=== PATIENT | female | born 1970 | race Two or more races ===

== ENCOUNTER 2024-07-10 07:09 | Emergency (ER) | payer MEDICAID, SELFPAY ==
[2024-07-10 07:25] VITALS: BP 123/82; PULSE 88; RESP 18; TEMP 36.8; O2SAT 96; BMI 22.8
--- NOTE | 2024-07-10 07:34 | PD.EDFMALE ---
ED Female Urogenital RME/HPI General Chief complaint: Abdominal Pain Stated complaint: PAINFUL URINATION Time Seen by Provider: 07/10/24 07:13 Source: patient Arrival date/time: 07/10/24 07:09 53-year-old female presents to the emergency room with a chief complaint of painful urination and lower abdominal pain x 3 days Mode of arrival: ambulatory Limitations: no limitations Related Data Previous Rx's ?Medication ?Instructions ?Recorded metoclopramide HCl 5 mg tablet 5 mg PO QDAY #9 tabs 02/29/20 (Reglan) doxycycline monohydrate 100 mg 100 mg PO BID 14 days #28 caps 07/10/24 capsule metoclopramide HCl 10 mg tablet 10 mg PO BID PRN nausea and 07/10/24 (Reglan) vomiting #10 tabs nitrofurantoin 100 mg PO Q12H 5 days #10 caps 07/10/24 monohydrate/macrocrystals 100 mg capsule (Macrobid) Allergies Allergy/AdvReac Type Severity Reaction Status Date / Time haloperidol Allergy Severe JAW LOCKS Verified 07/10/24 07:14 AND THROAT SWELLS Penicillins Allergy Severe THROAT Verified 07/10/24 07:14 SWELLING risperidone Allergy Severe THROAT Verified 07/10/24 07:14 SWELLING ketorolac Allergy Intermediate RASH Verified 07/10/24 07:14 Review of Systems Review of Systems Systems Reviewed: All systems reviewed, normal except as documented Constitutional Constitutional: Reports system reviewed and no additional complaints, except as documented, Denies fatigue, Denies fever(s), Denies headache(s) and Denies weakness Eyes Eyes: Reports system reviewed and no additional complaints, except as documented, Denies blurry vision and Denies change in vision ENT Ears, Nose, Mouth, and Throat: Reports system reviewed and no additional complaints, except as documented, Denies otalgia, Denies headache(s), Denies nasal congestion, Denies throat swelling and Denies vertigo Cardiovascular Cardiovascular: Reports system reviewed and no additional complaints, except as documented, Denies chest pain, Denies dyspnea and Denies dyspnea on exertion Respiratory Respiratory: Reports system reviewed and no additional complaints, except as documented, Denies chest congestion, Denies cough, Denies dyspnea, Denies dyspnea on exertion and Denies wheezing Gastrointestinal Gastrointestinal: Reports system reviewed and no additional complaints, except as documented, Denies abdominal pain, Denies cramping, Denies nausea and Denies vomiting Genitourinary Genitourinary: Reports system reviewed and no additional complaints, except as documented, Denies abnormal vaginal bleeding, Reports dysuria, Reports vaginal odor and Reports vaginal pruritus Musculoskeletal Musculoskeletal: Reports system reviewed and no additional complaints, except as documented and Denies back pain Integumentary/Breasts Skin/Breast: Reports system reviewed and no additional complaints, except as documented and Denies wounds Neurologic Neurologic: Reports system reviewed and no additional complaints, except as documented, Denies confusion, Denies headache(s), Denies lack of coordination, Denies vertigo and Denies weakness Psychiatric Psychiatric: Reports system reviewed and no additional complaints, except as documented, Denies anxiety, Denies confusion, Denies depression, Denies paranoia, Denies suicidal ideation and Denies tactile hallucinations Endocrine Endocrine: Reports system reviewed and no additional complaints, except as documented and Denies fatigue Hematologic/Lymphatic Hematologic/Lymphatic: Reports system reviewed and no additional complaints, except as documented and Denies lymphadenopathy Allergic/Immunologic Allergic/Immunologic: Reports system reviewed and no additional complaints, except as documented, Denies throat swelling, Denies urticaria and Denies wheezing ED Exam General Limitations: Present no limitations General appearance: Present alert and in no apparent distress Head Head exam: Present atraumatic Eye Eye exam: Present normal appearance, PERRL and EOMI ENT ENT exam: Present normal exam, normal oropharynx and mucous membranes moist Neck Neck exam: Present normal inspection, full ROM and trachea midline Chest Chest inspection: Present normal inspection and symmetric chest wall rise Respiratory Respiratory exam: Present normal lung sounds bilaterally Cardiovascular Cardiovascular exam: Present regular rate, normal rhythm and normal heart sounds Abdominal Exam Abdominal exam: Present soft and normal bowel sounds; Absent tenderness or tenderness at McBurney's Point Abdominal tenderness: Present suprapubic and mild; Absent RLQ or LLQ Extremities Exam Extremities exam: Present normal inspection and full ROM Back Exam Back exam: Present normal inspection and full ROM Neurological Exam Neurological exam: Present alert, oriented X3 and CN II-XII intact Psychiatric Psychiatric exam: Present normal affect and normal mood Skin Skin exam: Present warm, dry, intact and normal color Course Quality Measures none Orders Category Date Time Status CBC Stat Lab 07/10/24 07:50 Completed CMP [Comprehensive Metabolic Panel] Stat Lab 07/10/24 07:50 Completed Chlamydia/GC/TV - PCR Stat Lab 07/10/24 07:45 Received MHATP/TP-PA* Stat Lab 07/10/24 07:50 Received Syphilis Stat Lab 07/10/24 07:50 Completed UA, C/S IF [Urinalysis, C/S if Indicated] Stat Lab 07/10/24 07:45 Completed Metoclopramide [Reglan] Med 07/10/24 10:29 Discontinued 10 mg PO X1 ONE Ondansetron Odt [Zofran Odt] Med 07/10/24 08:33 Discontinued 4 mg PO X1 ONE cefTRIAXone [Rocephin] 1,000 mg Med 07/10/24 10:03 Discontinued Lidocaine 1% 20 ml [Xylocaine 1% 20 ML] 2.1 ml IM X1 Vital Signs Vital signs: Vital Signs Temperature 98.2 F 07/10/24 07:25 Pulse Rate 88 07/10/24 07:25 Respiratory Rate 18 07/10/24 07:25 Blood Pressure 123/82 07/10/24 07:25 Pulse Oximetry (%) 96 07/10/24 07:25 Oxygen Delivery Method Room Air 07/10/24 07:25 O2 saturation 96% within normal limits Urogenital - Female MDM Narrative MDM Narrative:: 53-year-old female presents to the emergency room with a chief complaint of painful urination and lower abdominal pain x 3 days Patient is hemodynamically stable and in no apparent distress. Physical examination shows mild abdominal cramping. Patient states she is having dysuria with no hematuria. Patient denies any flank pain. Urinalysis shows urinary tract infection. Patient also tested positive for syphilis. I spoke to the patient patient states she had syphilis when she was a teen and was treated. Patient does not know if this infection his recent but she states she will follow-up with her primary care provider and she will take the medication. Patient was discharged and educated to follow-up with primary care provider in the next 24 to 48 hours and return to the emergency room for any evidence of worsening signs or symptoms Patient data External records reviewed:: [facility] previous records Clinical information provided by:: patient Social determinants that could affect healthcare access:: none Patient has the following chronic illnesses:: No chronic illness How is presenting disease/condition affected by chronic disease/condition?: no chronic disease Evaluation data The following diagnostics were reviewed and interpreted by me:: lab results and radiology exam(s) Lab and/or radiology exams considered but not ordered:: Labs and radiology exams considered and ordered Interpretation Summary: N/A Medications / Prescriptions Medications or Prescriptions considered but not ordered:: Medication given Medication administrations:: Medication Administration History Discontinued Medications Ceftriaxone Sodium 1,000 mg/ (Lidocaine HCl 2.1 ml) 0 mg IM X1 ONE Stop: 07/10/24 10:04 Last Admin: 07/10/24 10:22 Dose: 1,000 mg Documented By: KYLE Metoclopramide HCl (Metoclopramide 5 Mg Tablet) 10 mg PO X1 ONE Stop: 07/10/24 10:30 Last Admin: 07/10/24 10:39 Dose: 10 mg Documented By: KYLE Ondansetron HCl (Ondansetron Odt 4 Mg Tabrap) 4 mg PO X1 ONE; Protocol Stop: 07/10/24 08:34 Last Admin: 07/10/24 08:48 Dose: 4 mg Documented By: JASIEL Medication given Consultations Consultation(s) initiated? (list below): No Diagnosis Urogenital Female Differential Diagnosis: urinary tract infection, bacterial vaginosis, vaginitis, cystitis and other (Syphilis) Most likely diagnosis given after review of the tests above:: Urinary tract infection/syphilis Admission Indicated Admission indicated?: not indicated Admission Request Was there a request for admission?: No Disposition Plan Disposition Plan: Discharge Discharge Attestation Discharge Attestation: The patient and all family members were given an opportunity to ask questions and understood the discharge instructions. Discharge instructions specifically effects, indications for sooner follow up or return to the emergency department, and the expected course of current diagnosis. Patient condition: Stable Discharge Plan Plan Patient Disposition: HOME (Self Care) Disposition Comment: Stable Prescriptions/Referrals Prescriptions/Med Rec: New metoclopramide HCl [Reglan] 10 mg tablet 10 mg PO BID PRN (Reason: nausea and vomiting) Qty: 10 0RF doxycycline monohydrate 100 mg capsule 100 mg PO BID 14 Days Qty: 28 0RF nitrofurantoin monohyd/m-cryst [Macrobid] 100 mg capsule 100 mg PO Q12H 5 Days Qty: 10 0RF Rx Instructions: must administer with a meal/food No Action metoclopramide HCl [Reglan] 5 mg tablet 5 mg PO QDAY Qty: 9 0RF Referrals: Ruddy Ochoa MD [Primary Care Provider] - In 1 week Problem List Clinical Impression: Urinary tract infection, Syphilis Patient/Caregiver Discharge Instructions Education Materials: Syphilis, ED CYSTITIS Female Adult Additional Instructions: Please follow-up with your primary care provider in the next 24 to 48 hours. Medication was sent to your pharmacy please pick it up and take it as indicated. For any evidence of worsening signs or symptoms return to the emergency room immediately Print Language: Jamaican Stand Alone Forms: Emma Award Info., Patient Portal Info Letter PA/TAG MARKER Supervising Physician PA/PENNY Supervising Physician: Dr. Funes
[2024-07-10 08:05] LABS: Basophils % (Auto) 0 % (0-2.5); Eosinophils % (Auto) 0 % (0-10); Hematocrit 41.6 % (36.0-46.0); Hemoglobin 14.6 g/dL (12.0-16.0); Immature Granulocytes % (Auto) 1 % (0-0); Immature Granulocytes Auto 0.06 Thou/mm3 (0.00-0.00); Lymphocytes # (Auto) 1.4 Thou/mm3 (1.0-4.8); Lymphocytes % (Auto) 14 % (10-50); Mean Corpuscular HGB Conc 35.1 g/dl (31.0-37.0); Mean Corpuscular Hemoglobin 31.3 pg (25.0-35.0); Mean Corpuscular Volume 89 fL (80-100); Monocytes # (Auto) 0.9 Thou/mm3 (0.0-0.8); Monocytes % (Auto) 9 % (0-12); Neutrophils # (Auto) 7.7 Thou/mm3 (1.8-7.7); Neutrophils % (Auto) 76 % (37-80); Nucleated Red Blood Cell % 0 /100 WBC (0); Platelet Count 314 Thou/mm3 (140-440); RDW Standard Deviation 39.8 fL (36.4-46.3); Red Blood Count 4.67 Miln/mm3 (4.00-5.20); White Blood Count 10.2 Thou/mm3 (3.6-11.0)
[2024-07-10 08:22] LABS: Alanine Aminotransferase 28 U/L (10-49); Albumin, Serum 4.7 gm/dL (3.5-5.0); Albumin/Globulin Ratio 1.5 (1.2-2.2); Alkaline Phosphatase 78 U/L (46-116); Anion Gap 9 (7-16); Aspartate Amino Transferase 28 U/L (0-34); BUN/Creatinine Ratio 11 Ratio (12-20); Bilirubin,Total 0.4 mg/dL (0.3-1.2); Blood Urea Nitrogen 10 mg/dL (9-23); Calcium 10.1 mg/dL (8.3-10.6); Calcium (Corrected) 10.1 mg/dL (8.5-10.1); Carbon Dioxide 29.9 mMol/L (20.0-31.0); Chloride 96 mMol/L (98-107); Creatinine (Component) 0.9 mg/dL (0.6-1.3); Estimated Creatinine Clearance 61.7 mL/min (>60); Globulin 3.1 gm/dL (2.3-3.5); Glucose 116 mg/dL (74-106); Osmolality,Calculated 270 (275-295); Potassium 3.6 mMol/L (3.4-5.1); Sodium 135 mMol/L (136-145); Total Protein 7.8 gm/dL (5.7-8.2); eGFR > 60 See Note
[2024-07-10] MEDS: ONDANSETRON ODT 4 MG TABRAP PO (08:48)
[2024-07-10 09:05] LABS: Syphilis Reactive (Nonreactive)
[2024-07-10 09:06] LABS: MHATP/TP-PA* See Sep Rpt
[2024-07-10 10:01] LABS: Amorphous Crystals,Urine Present (Absent); Bacteria,Urine Rare; Bilirubin,Urine Negative (Negative); Blood,Urine 1+ (Negative); Clarity,Urine Turbid (Clear/Hazy); Collection Type, Urine Clean Catch; Color,Urine Yellow (Lt Yel-Yel); Culture Indicated,Urine Contaminated; Glucose, Urine Negative (Negative); Ketones,Urine Trace (Negative); Leukocyte Esterase,Urine Positive (Negative); Nitrite,Urine Negative (Negative); PH,Urine 6.5 (5.0-7.0); Protein,Urine 1+ (Neg - Trace); RBC,Urine 18 /hpf (0-3); Squamous Epithelial Cell,Urine 17 /hpf (0-5); WBC,Urine 892 /hpf (0-5)
--- NOTE | 2024-07-10 10:03 | PC.NURSE ---
CONTACTED LAB DUE TO UA NOT RESULTING AND IN PENDING STATUS. URINE WAS TAKEN TO LAB VIA NURSE AT 0915. LINUX SUPPORT ENGINEER STATES SHE WILL RECEIVE URINE NOW AND RUN IT. PROVIDER MADE AWARE OF DELAY
[2024-07-10] MEDS: cefTRIAXone 1,000 MG, LIDOCAINE 1% 20 ML 2.1 ML IM (10:22)
[2024-07-10] MEDS: METOCLOPRAMIDE 5 MG TABLET 10 MG PO (10:39)
[2024-07-10 13:38] LABS: Chlamydia trachomatis PCR Negative (Not Detect); Neisseria Gonorrhoeae DNA PCR Negative (Not Detect); Trichomonas Negative (Negative)
== END 2024-07-10 10:47 | disposition home or self-care (01) ==
PROVIDERS: Nurse Practitioner Family; Emergency Provider Emergency Medicine; PCP Family Medicine
DX: N39.0 Urinary tract infection, site not specified (principal); A53.9 Syphilis, unspecified
CPT/HCPCS: 36415; 80053; 81001; 85025; 86780; 87491; 87591; 87661; 96372; 99283; J0696; J3490; Q0162; A9270

== ENCOUNTER 2024-07-19 07:05 | Emergency (ER) | payer MEDICAID, SELFPAY ==
[2024-07-19 07:05] VITALS: BMI 22.3
[2024-07-19 07:11] VITALS: BP 107/65; PULSE 121; RESP 20; TEMP 36.6; O2SAT 95; BMI 21.6
--- NOTE | 2024-07-19 07:14 | XR_ITS ---
Examination: PA lateral chest 2 views TECHNIQUE: Upright PA lateral chest 2 views Exam date and time: July 19, 2024 0623 hours INDICATIONS: Coughing today FINDINGS: Normal heart size No pneumonia Moderate osteopenia IMPRESSION: No pneumonia identified
--- NOTE | 2024-07-19 07:15 | PD.EDRME ---
Rapid Medical Screening Exam RME Arrival date/time: 07/19/24 07:05 53-year-old female presents to the emergency department today complaints of nausea vomiting abdominal pain Chief Complaint: Nausea/Vomiting/Diarrhea Vital signs: Vital Signs Temperature 97.8 F 07/19/24 07:11 Pulse Rate 121 H 07/19/24 07:11 Respiratory Rate 20 07/19/24 07:11 Blood Pressure 107/65 07/19/24 07:11 Pulse Oximetry (%) 95 07/19/24 07:11 Oxygen Delivery Method Room Air 07/19/24 07:11
[2024-07-19 07:35] LABS: Collection Type, Urine Clean Catch
[2024-07-19] MEDS: ONDANSETRON ODT 4 MG TABRAP PO (07:37)
[2024-07-19 07:44] LABS: Bilirubin,Urine Negative (Negative); Blood,Urine Negative (Negative); Color,Urine Yellow (Lt Yel-Yel); Culture Indicated,Urine Contaminated; Glucose, Urine Negative (Negative); Hyaline Casts,Urine 2 /hpf (0-1); Ketones,Urine Negative (Negative); Leukocyte Esterase,Urine Positive (Negative); Nitrite,Urine Negative (Negative); PH,Urine 6.5 (5.0-7.0); Protein,Urine 1+ (Neg - Trace); RBC,Urine 5 /hpf (0-3); Specific Gravity,Urine 1.015 (1.001-1.035); Squamous Epithelial Cell,Urine 84 /hpf (0-5); Urobilinogen,Urine Negative mg/dL (0.0-1.0); WBC,Urine 18 /hpf (0-5)
[2024-07-19 07:54] LABS: Clarity,Urine Hazy (Clear/Hazy)
[2024-07-19 08:31] LABS: Amphetamine/Methamp Scrn,U Positive (Negative); Barbiturate Screen,Urine Negative (Negative); Benzodiazepines Screen,Urine Negative (Negative); Benzoylecgonine Screen, Ur Negative (Negative); Fentanyl Screen,Urine Negative (Negative); Opiate Screen,Urine Negative (Negative); THC Screen,Urine Positive (Negative)
[2024-07-19 08:32] LABS: Basophils % (Auto) 1 % (0-2.5); Eosinophils # (Auto) 0.1 Thou/mm3 (0.0-0.5); Eosinophils % (Auto) 1 % (0-10); Hematocrit 46.7 % (36.0-46.0); Hemoglobin 16.4 g/dL (12.0-16.0); Immature Granulocytes % (Auto) 0 % (0-0); Immature Granulocytes Auto 0.01 Thou/mm3 (0.00-0.00); Lymphocytes % (Auto) 27 % (10-50); Mean Corpuscular HGB Conc 35.1 g/dl (31.0-37.0); Mean Corpuscular Hemoglobin 30.5 pg (25.0-35.0); Mean Corpuscular Volume 87 fL (80-100); Monocytes # (Auto) 0.4 Thou/mm3 (0.0-0.8); Monocytes % (Auto) 6 % (0-12); Neutrophils # (Auto) 4.9 Thou/mm3 (1.8-7.7); Neutrophils % (Auto) 65 % (37-80); Nucleated Red Blood Cell % 0 /100 WBC (0); Platelet Count 343 Thou/mm3 (140-440); Red Blood Count 5.37 Miln/mm3 (4.00-5.20); White Blood Count 7.4 Thou/mm3 (3.6-11.0)
--- NOTE | 2024-07-19 08:35 | PC.NURSE ---
PT CAME IN FOR NAUSEA AND VOMITING X2 WEEKS STATES CANT KEEP ANYTHING DOWN, PT STATES PAIN IN ABD TENDER ACROSS LOWER ABD.
--- NOTE | 2024-07-19 08:40 | PC.NURSE ---
PT STATES THAT SHE IS AN ALCOHOLIC AND THAT SHE HAS NOT BEEN ABLE TO DRINK SINCE AND SHE IS DETOXING, STATES LAST BM ABOUT ONE WEEK AGO
[2024-07-19 08:52] LABS: Alanine Aminotransferase 26 U/L (10-49); Albumin, Serum 5.1 gm/dL (3.5-5.0); Albumin/Globulin Ratio 1.6 (1.2-2.2); Alkaline Phosphatase 72 U/L (46-116); Anion Gap 8 (7-16); Aspartate Amino Transferase 30 U/L (0-34); BUN/Creatinine Ratio 8 Ratio (12-20); Bilirubin,Total 0.6 mg/dL (0.3-1.2); Blood Urea Nitrogen 9 mg/dL (9-23); Calcium 11.4 mg/dL (8.3-10.6); Calcium (Corrected) 11.4 mg/dL (8.5-10.1); Carbon Dioxide 31.9 mMol/L (20.0-31.0); Chloride 96 mMol/L (98-107); Creatinine (Component) 1.1 mg/dL (0.6-1.3); Estimated Creatinine Clearance 52.6 mL/min (>60); Globulin 3.1 gm/dL (2.3-3.5); Glucose 103 mg/dL (74-106); HCG,Qualitative Serum Negative; Lipase 32 U/L (12-53); Osmolality,Calculated 270 (275-295); Potassium 3.8 mMol/L (3.4-5.1); Sodium 136 mMol/L (136-145); Total Protein 8.2 gm/dL (5.7-8.2); eGFR 60 See Note
--- NOTE | 2024-07-19 09:02 | PD.EDNV ---
Nausea/Vomit./Diarrhea-RME/HPI General Chief complaint: Nausea/Vomiting/Diarrhea Stated complaint: VOMITING Arrival date/time: 07/19/24 07:05 RME / HPI RME / HPI Narrative: 07/19/24 07:05 53-year-old female presents to the emergency department today complaints of nausea vomiting abdominal pain DR. TEMPLETON MAIN ED EVALUATION: 53 year old female with past medical history significant for diverticulitis presents to the Emergency Department with complaint of lower bilateral abdominal pain onset 1 week but worse in the last 2 days. Associated symptoms include nausea and vomiting, low quantities of emesis. No bloody emesis. No dysuria or other urinary symptoms. Related Data Previous Rx's ?Medication ?Instructions ?Recorded metoclopramide HCl 5 mg tablet 5 mg PO QDAY #9 tabs 02/29/20 (Reglan) doxycycline monohydrate 100 mg 100 mg PO BID 14 days #28 caps 07/10/24 capsule metoclopramide HCl 10 mg tablet 10 mg PO BID PRN nausea and 07/10/24 (Reglan) vomiting #10 tabs ondansetron 4 mg disintegrating 4 mg PO Q8H PRN nausea and 07/19/24 tablet vomiting #10 tabs Allergies Allergy/AdvReac Type Severity Reaction Status Date / Time haloperidol Allergy Severe JAW LOCKS Verified 07/19/24 07:07 AND THROAT SWELLS Penicillins Allergy Severe THROAT Verified 07/19/24 07:07 SWELLING risperidone Allergy Severe THROAT Verified 07/19/24 07:07 SWELLING ketorolac Allergy Intermediate RASH Verified 07/19/24 07:07 Review of Systems Review of Systems Systems Reviewed: All systems reviewed, normal except as documented Past Medical History Past Medical History NEUROLOGIC: Positive Neurological Disorders, Transient Ischemic Attacks (TIA) (LEFT SIDE WEAKNESS) and Seizures CARDIAC: Positive Cardiac Disorders (MT) RESPIRATORY: Positive Chronic Obstructive Pulmonary Disease (COPD) and Asthma (COPD) GASTROINTESTINAL: Positive Hepatitis, Diverticulitis and Gastroesophageal Reflux Disease GENITOURINARY: Positive Kidney Stones REPRODUCTIVE: Positive Previous Pregnancies (3 ECTOPIC) MUSCULOSKELETAL: Positive Degenerative Disk Disease ENT: Positive History of ENT Problems (DIFFICCULT HEARING LEFT EAR) PSYCHO/SOCIAL: Positive Bipolar Disorder and Post Traumatic Stress Disorder OTHER HISTORY: Positive Hospitalization, Blood Transfusions and Cervical Cancer Surgical History SURGICAL: Positive Hysterectomy Social History SMOKING STATUS: Current every day smoker SUBSTANCE USE: marijuana ALCOHOL: Never ED Exam Narrative Physical exam: GENERAL APPEARANCE: AxOx4, generally well-appearing, no acute distress. HEENT: NC, AT. MMM. EOMI, clear conjunctiva, oropharynx clear. NECK: Supple without lymphadenopathy. No stiffness or restricted ROM. HEART: Normal rate and regular rhythm, normal S1/S1, no m/r/g LUNGS: CTAB, moving air well. No crackles or wheezes are heard. ABDOMEN: There is point tenderness in the suprapubic area and mild bilateral lower abdomen tenderness as well. Good bowel sounds heard. BACK: No midline C/T/L spine pain or deformity, No CVAT, no obvious deformity. EXTREMITIES: Without cyanosis, clubbing or edema. MUSCULOSKELETAL: FROM of all major joints, no chest tenderness NEUROLOGICAL: Grossly nonfocal. Alert and oriented, moving all 4 extremities. CN not formally tested but appear grossly intact. Observed to ambulate with normal gait. Skin: Warm and dry without any rash. Course Quality Measures none Orders Category Date Time Status Bedside COVID-19 Antigen Test NOW Care 07/19/24 07:14 Active Bedside Influenza A&B Antigen Test NOW Care 07/19/24 07:[address] Screening NOW Care 07/19/24 09:[address] abdomen pelvis w con Stat Exams 07/19/24 09:41 Completed XR chest 2V Stat Exams 07/19/24 07:14 Completed CBC Stat Lab 07/19/24 08:25 Completed Comprehensive Metabolic Panel Stat Lab 07/19/24 08:25 Completed Drug Screen,Urine Stat Lab 07/19/24 07:25 Completed HCG,Qualitative Serum Stat Lab 07/19/24 08:25 Completed Lipase Stat Lab 07/19/24 08:25 Completed UA, C/S IF [Urinalysis, C/S if Indicated] Stat Lab 07/19/24 07:25 Completed Morphine Inj Med 07/19/24 08:55 Discontinued 4 mg IVP X1 ONE Morphine Inj Med 07/19/24 14:11 Discontinued 6 mg IVP X1 ONE Ondansetron Inj [Zofran Inj] Med 07/19/24 08:52 Discontinued 4 mg IV X1 ONE Ondansetron Inj [Zofran Inj] Med 07/19/24 14:11 Discontinued 4 mg IV X1 ONE Ondansetron Odt [Zofran Odt] Med 07/19/24 07:15 Discontinued 4 mg PO X1 ONE Sodium Chloride 0.9% 1000 ml [Ns] 1,000 ml Med 07/19/24 08:52 Discontinued IV 999 mls/hr Reevaluation(s) Reevaluation #1: I had a discussion about findings and results. Also, patient was educated on substance abuse but she has no interest in stopping. Time: 15:38 Vital Signs Vital signs: Vital Signs Temperature 97.8 F 07/19/24 07:11 Pulse Rate 121 H 07/19/24 07:11 Respiratory Rate 20 07/19/24 07:11 Blood Pressure 107/65 07/19/24 07:11 Pulse Oximetry (%) 95 07/19/24 07:11 Oxygen Delivery Method Room Air 07/19/24 07:11 Nausea/Vomiting/Diarrhea MDM Narrative MDM Narrative:: I, Petra Vasquez, am scribing for and in the presence of Dr. Templeton. Patient data External records reviewed:: [facility] previous records (Reviewed last ED visit dated 07/10/24, discharged with the following: Syphilis) Clinical information provided by:: patient Social determinants that could affect healthcare access:: substance use (marijuana) Patient has the following chronic illnesses:: diverticulitis How is presenting disease/condition affected by chronic disease/condition?: exacerbated by Evaluation data The following diagnostics were reviewed and interpreted by me:: lab results and radiology exam(s) Lab and/or radiology exams considered but not ordered:: none Interpretation Summary: Procedure(s): XR chest 2V Accession Number(s): [id number] cc: Jeff (ROSIE),Win VELEZ; Ruddy Ochoa MD; Heber Salinas MD~ Examination: PA lateral chest 2 views TECHNIQUE: Upright PA lateral chest 2 views Exam date and time: July 19, 2024 0623 hours INDICATIONS: Coughing today FINDINGS: Normal heart size No pneumonia Moderate osteopenia IMPRESSION: No pneumonia identified Dictated By: Heber Salinas MD Procedure(s): CT abdomen pelvis w con Accession Number(s): [id number] cc: Ruddy Ochoa MD; Aki Templeton MD; Heber Salinas MD~ Examination: CT abdomen with intravenous contrast CT pelvis with intravenous contrast 2-D coronal reconstructions 2-D sagittal reconstructions Date and time of exam:July 19, 2024 1432 hours INDICATIONS: Onset abdominal pain today COMPARISON: February 29, 2020. CTDI: vol (mGy) 5.96 DLP: (mGycm) 319 Technique: Multiple axial sections of the abdomen and pelvis have been obtained. 64 slice high-resolution scanner used. 3 mm axial sections have been obtained, post intravenous injection 60 cc [id number] 2-D sagittal, coronal reconstructions obtained. Low dose protocols were performed. One or more of the following dose reduction techniques were used; automated exposure control, adjustment of the mA and/or KV according to patient size, use of iterative reconstruction technique. Findings: No focal liver or splenic lesions No gallstones No pancreatic or adrenal mass. No renal or ureteral calculi, no hydronephrosis Aorta normal size 8mm fat-containing umbilical hernia Colonic diverticulosis, no diverticulitis Normal appendix, coronal image 79 No bowel obstruction Absent uterus Urinary bladder intact IMPRESSION: No renal or ureteral calculi, no hydronephrosis Normal appendix Scattered colonic diverticulosis, no diverticulitis Dictated By: Heber Salinas MD Medications / Prescriptions Medications / Prescriptions considered but not ordered:: none Medication administrations:: Medication Administration History Discontinued Medications Sodium Chloride (Ns) 1,000 mls @ 999 mls/hr IV .Q1H1M ONE Stop: 07/19/24 09:52 Last Infusion: 07/19/24 10:14 Dose: Infused Documented By: Admin: 07/19/24 09:16 Dose: 999 mls/hr Documented By: BD Morphine Sulfate (Morphine Sulf Inj 10 Mg/Ml Vial) 4 mg IVP X1 ONE Stop: 07/19/24 08:56 Last Admin: 07/19/24 09:17 Dose: 4 mg Documented By: BD Morphine Sulfate (Morphine Sulf Inj 10 Mg/Ml Vial) 6 mg IVP X1 ONE Stop: 07/19/24 14:12 Last Admin: 07/19/24 14:17 Dose: 6 mg Documented By: HERNANDO Ondansetron HCl (Ondansetron Odt 4 Mg Tabrap) 4 mg PO X1 ONE; Protocol Stop: 07/19/24 07:16 Last Admin: 07/19/24 07:37 Dose: 4 mg Documented By: NEFTALY Ondansetron HCl (Ondansetron Inj 2 Mg/Ml Inj 2 Ml) 4 mg IV X1 ONE; Protocol Stop: 07/19/24 08:53 Last Admin: 07/19/24 09:17 Dose: 4 mg Documented By: HERNANDO Ondansetron HCl (Ondansetron Inj 2 Mg/Ml Inj 2 Ml) 4 mg IV X1 ONE; Protocol Stop: 07/19/24 14:12 Last Admin: 07/19/24 14:16 Dose: 4 mg Documented By: HERNANDO see above Consultations Consultation(s) initiated? (list below): No Diagnosis Nausea Differential Diagnosis: gastroenteritis, drug-induced nausea and vomiting and dehydration Most likely diagnosis given after review of the tests above:: Cannabinoid hyperemesis syndrome Admission Indicated Admission indicated?: not indicated Admission Request Was there a request for admission?: No Disposition Plan Disposition Plan: Discharge Discharge Attestation Discharge Attestation: The patient and all family members were given an opportunity to ask questions and understood the discharge instructions. Discharge instructions specifically effects, indications for sooner follow up or return to the emergency department, and the expected course of current diagnosis. Patient condition: Stable Discharge Plan Plan Patient Disposition: HOME (Self Care) Prescriptions/Referrals Prescriptions/Med Rec: New ondansetron 4 mg tablet,disintegrating 4 mg PO Q8H PRN (Reason: nausea and vomiting) Qty: 10 0RF No Action metoclopramide HCl [Reglan] 5 mg tablet 5 mg PO QDAY Qty: 9 0RF metoclopramide HCl [Reglan] 10 mg tablet 10 mg PO BID PRN (Reason: nausea and vomiting) Qty: 10 0RF doxycycline monohydrate 100 mg capsule 100 mg PO BID 14 Days Qty: 28 0RF Referrals: Ruddy Ochoa MD [Primary Care Provider] - In 1 week Problem List Clinical Impression: Cannabinoid hyperemesis syndrome Patient/Caregiver Discharge Instructions Education Materials: Cannabinoid Hyperemesis Syndrome, ED Vomiting (Adult) Print Language: Ugandan Stand Alone Forms: Emma Award Info., Patient Portal Info Letter
[2024-07-19] MEDS: SODIUM CHLORIDE 0.9% 1000 ML 1,000 ML 999 ML IV (09:16)
[2024-07-19] MEDS: MORPHINE SULF INJ 10 MG/ML VIAL 4 MG IVP (09:17)
[2024-07-19] MEDS: ONDANSETRON INJ 2 MG/ML INJ 2 ML 4 MG IV ×2 (09:17→14:16)
[2024-07-19 09:19] VITALS: BP 148/96; PULSE 81; RESP 18; TEMP 37.1; O2SAT 93
--- NOTE | 2024-07-19 09:41 | XR_ITS ---
Examination: CT abdomen with intravenous contrast CT pelvis with intravenous contrast 2-D coronal reconstructions 2-D sagittal reconstructions Date and time of exam:July 19, 2024 1432 hours INDICATIONS: Onset abdominal pain today COMPARISON: February 29, 2020. CTDI: vol (mGy) 5.96 DLP: (mGycm) 319 Technique: Multiple axial sections of the abdomen and pelvis have been obtained. 64 slice high-resolution scanner used. 3 mm axial sections have been obtained, post intravenous injection 60 cc [id number] 2-D sagittal, coronal reconstructions obtained. Low dose protocols were performed. One or more of the following dose reduction techniques were used; automated exposure control, adjustment of the mA and/or KV according to patient size, use of iterative reconstruction technique. Findings: No focal liver or splenic lesions No gallstones No pancreatic or adrenal mass. No renal or ureteral calculi, no hydronephrosis Aorta normal size 8mm fat-containing umbilical hernia Colonic diverticulosis, no diverticulitis Normal appendix, coronal image 79 No bowel obstruction Absent uterus Urinary bladder intact IMPRESSION: No renal or ureteral calculi, no hydronephrosis Normal appendix Scattered colonic diverticulosis, no diverticulitis
[2024-07-19 11:55] VITALS: BP 127/81; PULSE 97; RESP 18; TEMP 37.1; O2SAT 95
[2024-07-19] MEDS: MORPHINE SULF INJ 10 MG/ML VIAL 6 MG IVP (14:17)
[2024-07-19 14:48] VITALS: BP 116/83; PULSE 76; RESP 16; O2SAT 97
--- NOTE | 2024-07-19 15:50 | PC.NURSE ---
PT STATES THAT SHE WANTS TO LEAVE AND DOES NOT WANT TO WAIT FOR HER DC PAPERS. PT STATES SOMEONE NEEDS TO TAKE THIS IV OUT BEFORE I DO . IV LOCK REMOVED WITH CATHETER INTACT. PRESSURE APPLIED. PT LEFT AT THIS TIME
== END 2024-07-19 15:50 | disposition home or self-care (01) ==
PROVIDERS: Nurse Practitioner Primary Care; Emergency Provider Emergency Medicine; PCP Family Medicine
DX: R11.2 Nausea with vomiting, unspecified (principal); F12.90 Cannabis use, unspecified, uncomplicated
CPT/HCPCS: 36415; 71046; 74177; 80053; 80307; 81001; 83690; 84703; 85025; 87400; 87811; 96361; 96374; 96375; 96376; 99285; A4649; J2270; J2405; J7030; Q0162; Q9967